=== PATIENT | female | born 1955 | race Caucasian/White ===

== ENCOUNTER 2021-12-13 04:59 | Emergency (ER) | payer BC, OTHER ==
[2021-12-13] MEDS ORDERED: CEPHALEXIN MONOHYDRATE 500 MG CAPSULE (UD) PO ONE (05:04)
[2021-12-13] MEDS ORDERED: PHENAZOPYRIDINE HCL 100 MG TABLET (FP) PO ONE (05:06)
[2021-12-13 05:23] VITALS: BP 129/85; PULSE 76; RESP 16; TEMP 98.4; BMI 21.9
[2021-12-13] MEDS ORDERED: CEPHALEXIN MONOHYDRATE 500 MG CAPSULE (UD) ONE (05:25)
[2021-12-13] MEDS ORDERED: PHENAZOPYRIDINE HCL 100 MG TABLET (FP) ONE (05:25)
[2021-12-13 08:09] LABS: EPITHELIAL CELLS FEW /hpf
== END 2021-12-13 05:31 | disposition home or self-care (01) ==
LOC: FER 04:59
DX: N30.90 Cystitis, unspecified without hematuria (principal)
CPT/HCPCS: 81003; 81015; 87086; 87186; 99283-25